=== PATIENT | male | born 1975 | race Caucasian/White ===

== ENCOUNTER 2025-03-23 13:51 | Outpatient (CLI) | payer OTHER, SELFPAY | END 2025-03-23 13:52 | disposition home or self-care (01) | LOC: WOUND 13:53 | PROVIDERS: Referring Provider Orthopaedic Surgery Foot and Ankle Surgery; Visit Provider Nurse Practitioner Family | DX: E11.621 Type 2 diabetes mellitus with foot ulcer (principal); L89.613 Pressure ulcer of right heel, stage 3; Z79.84 Long term (current) use of oral hypoglycemic drugs | CPT/HCPCS: 97597; G0463 ==

== ENCOUNTER 2025-03-30 12:00 | Outpatient (CLI) | payer OTHER, SELFPAY | END 2025-03-30 12:01 | disposition home or self-care (01) | LOC: WOUND 04-03 14:48 | PROVIDERS: Visit Provider Nurse Practitioner Family | DX: E11.628 Type 2 diabetes mellitus with other skin complications (principal); L89.613 Pressure ulcer of right heel, stage 3; Z79.84 Long term (current) use of oral hypoglycemic drugs | CPT/HCPCS: 11042 ==

== ENCOUNTER 2025-04-06 08:44 | Outpatient (CLI) | payer OTHER, SELFPAY | END 2025-04-06 08:45 | disposition home or self-care (01) | LOC: WOUND 08:44 | PROVIDERS: Visit Provider Nurse Practitioner Family | DX: E11.621 Type 2 diabetes mellitus with foot ulcer (principal); L89.613 Pressure ulcer of right heel, stage 3; L89.512 Pressure ulcer of right ankle, stage 2; Z79.84 Long term (current) use of oral hypoglycemic drugs | CPT/HCPCS: 11042; 97602 ==

== ENCOUNTER 2025-04-13 09:41 | Outpatient (CLI) | payer OTHER, SELFPAY | END 2025-04-13 09:42 | disposition home or self-care (01) | LOC: WOUND 09:41 | PROVIDERS: Visit Provider Nurse Practitioner Family | DX: L89.613 Pressure ulcer of right heel, stage 3 (principal); E11.9 Type 2 diabetes mellitus without complications; Z79.84 Long term (current) use of oral hypoglycemic drugs | CPT/HCPCS: 11042 ==

== ENCOUNTER 2025-04-20 08:44 | Outpatient (CLI) | payer OTHER, SELFPAY | END 2025-04-20 08:45 | disposition home or self-care (01) | LOC: WOUND 08:44 | PROVIDERS: Visit Provider Nurse Practitioner Family | DX: E11.621 Type 2 diabetes mellitus with foot ulcer (principal); L97.412 Non-pressure chronic ulcer of right heel and midfoot with fat layer exposed; Z79.84 Long term (current) use of oral hypoglycemic drugs | CPT/HCPCS: 11042 ==

== ENCOUNTER 2025-04-27 08:41 | Outpatient (CLI) | payer OTHER, SELFPAY | END 2025-04-27 08:42 | disposition home or self-care (01) | LOC: WOUND 08:41 | PROVIDERS: Visit Provider Nurse Practitioner Family | DX: E11.621 Type 2 diabetes mellitus with foot ulcer (principal); L97.412 Non-pressure chronic ulcer of right heel and midfoot with fat layer exposed; Z79.84 Long term (current) use of oral hypoglycemic drugs | CPT/HCPCS: 11042 ==

== ENCOUNTER 2025-05-04 08:48 | Outpatient (CLI) | payer OTHER, SELFPAY | END 2025-05-04 08:49 | disposition home or self-care (01) | LOC: WOUND 08:48 | PROVIDERS: Visit Provider Nurse Practitioner Family | DX: E11.621 Type 2 diabetes mellitus with foot ulcer (principal); L97.412 Non-pressure chronic ulcer of right heel and midfoot with fat layer exposed; E11.622 Type 2 diabetes mellitus with other skin ulcer; L97.312 Non-pressure chronic ulcer of right ankle with fat layer exposed; Z79.84 Long term (current) use of oral hypoglycemic drugs | CPT/HCPCS: 11042; 97597 ==

== ENCOUNTER 2025-05-11 08:49 | Outpatient (CLI) | payer OTHER, SELFPAY | END 2025-05-11 08:50 | disposition home or self-care (01) | PROVIDERS: Visit Provider Nurse Practitioner Family | DX: E11.621 Type 2 diabetes mellitus with foot ulcer (principal); L97.412 Non-pressure chronic ulcer of right heel and midfoot with fat layer exposed; E11.622 Type 2 diabetes mellitus with other skin ulcer; L97.312 Non-pressure chronic ulcer of right ankle with fat layer exposed; Z79.84 Long term (current) use of oral hypoglycemic drugs | CPT/HCPCS: 15275; 97597; Q4133 ==

== ENCOUNTER 2025-05-18 08:51 | Outpatient (CLI) | payer OTHER, SELFPAY | END 2025-05-18 08:52 | disposition home or self-care (01) | LOC: WOUND 08:51 | PROVIDERS: Visit Provider Nurse Practitioner Family | DX: E11.622 Type 2 diabetes mellitus with other skin ulcer (principal); L97.312 Non-pressure chronic ulcer of right ankle with fat layer exposed; E11.621 Type 2 diabetes mellitus with foot ulcer; L97.412 Non-pressure chronic ulcer of right heel and midfoot with fat layer exposed; Z79.84 Long term (current) use of oral hypoglycemic drugs | CPT/HCPCS: 29445; 97597 ==

== ENCOUNTER 2025-05-21 09:27 | Outpatient (CLI) | payer OTHER, SELFPAY | END 2025-05-21 09:28 | disposition home or self-care (01) | LOC: WOUND 09:39 | PROVIDERS: Visit Provider Family Medicine | DX: E11.621 Type 2 diabetes mellitus with foot ulcer (principal); L97.412 Non-pressure chronic ulcer of right heel and midfoot with fat layer exposed; L97.312 Non-pressure chronic ulcer of right ankle with fat layer exposed; Z79.84 Long term (current) use of oral hypoglycemic drugs; E11.622 Type 2 diabetes mellitus with other skin ulcer | CPT/HCPCS: 29445 ==

== ENCOUNTER 2025-05-25 08:48 | Outpatient (CLI) | payer OTHER, SELFPAY | END 2025-05-25 08:49 | disposition home or self-care (01) | LOC: WOUND 08:49 | PROVIDERS: Visit Provider Nurse Practitioner Family | DX: E11.621 Type 2 diabetes mellitus with foot ulcer (principal); L97.412 Non-pressure chronic ulcer of right heel and midfoot with fat layer exposed; E11.622 Type 2 diabetes mellitus with other skin ulcer; L97.312 Non-pressure chronic ulcer of right ankle with fat layer exposed; Z79.84 Long term (current) use of oral hypoglycemic drugs | CPT/HCPCS: 15275; 97597; Q4133 ==

== ENCOUNTER 2025-06-01 08:45 | Outpatient (CLI) | payer OTHER, SELFPAY | END 2025-06-01 08:46 | disposition home or self-care (01) | LOC: WOUND 08:45 | PROVIDERS: Visit Provider Nurse Practitioner Family | DX: E11.621 Type 2 diabetes mellitus with foot ulcer (principal); L97.412 Non-pressure chronic ulcer of right heel and midfoot with fat layer exposed; E11.622 Type 2 diabetes mellitus with other skin ulcer; L97.312 Non-pressure chronic ulcer of right ankle with fat layer exposed; Z79.84 Long term (current) use of oral hypoglycemic drugs | CPT/HCPCS: 11042; 29445 ==

== ENCOUNTER 2025-06-08 08:45 | Outpatient (CLI) | payer OTHER, SELFPAY | END 2025-06-08 08:46 | disposition home or self-care (01) | LOC: WOUND 08:46 | PROVIDERS: Visit Provider Family Medicine | DX: E11.621 Type 2 diabetes mellitus with foot ulcer (principal); L97.412 Non-pressure chronic ulcer of right heel and midfoot with fat layer exposed; E11.622 Type 2 diabetes mellitus with other skin ulcer; L97.312 Non-pressure chronic ulcer of right ankle with fat layer exposed; S81.812A Laceration without foreign body, left lower leg, initial encounter; Z79.84 Long term (current) use of oral hypoglycemic drugs | CPT/HCPCS: 11042; 97597 ==

== ENCOUNTER 2025-06-15 08:48 | Outpatient (CLI) | payer OTHER, SELFPAY | END 2025-06-15 08:49 | disposition home or self-care (01) | LOC: WOUND 08:48 | PROVIDERS: Visit Provider Nurse Practitioner Family | DX: E11.621 Type 2 diabetes mellitus with foot ulcer (principal); L97.412 Non-pressure chronic ulcer of right heel and midfoot with fat layer exposed; E11.622 Type 2 diabetes mellitus with other skin ulcer; L97.312 Non-pressure chronic ulcer of right ankle with fat layer exposed; S81.812A Laceration without foreign body, left lower leg, initial encounter; Z79.84 Long term (current) use of oral hypoglycemic drugs | CPT/HCPCS: 11042; 15275; Q4133 ==

== ENCOUNTER 2025-06-22 08:47 | Outpatient (CLI) | payer OTHER, SELFPAY | END 2025-06-22 08:48 | disposition home or self-care (01) | LOC: WOUND 08:47 | PROVIDERS: Visit Provider Nurse Practitioner Family | DX: E11.622 Type 2 diabetes mellitus with other skin ulcer (principal); L97.312 Non-pressure chronic ulcer of right ankle with fat layer exposed; S81.812A Laceration without foreign body, left lower leg, initial encounter; Z79.84 Long term (current) use of oral hypoglycemic drugs | CPT/HCPCS: 11042 ==

== ENCOUNTER 2025-06-29 08:44 | Outpatient (CLI) | payer OTHER, SELFPAY | END 2025-06-29 08:45 | disposition home or self-care (01) | LOC: WOUND 08:44 | PROVIDERS: Visit Provider Nurse Practitioner Family | DX: E11.622 Type 2 diabetes mellitus with other skin ulcer (principal); L97.312 Non-pressure chronic ulcer of right ankle with fat layer exposed; L97.412 Non-pressure chronic ulcer of right heel and midfoot with fat layer exposed; S81.812A Laceration without foreign body, left lower leg, initial encounter; Z79.84 Long term (current) use of oral hypoglycemic drugs | CPT/HCPCS: 11042; 97597 ==

== ENCOUNTER 2025-06-29 09:40 | Outpatient (CLI) | payer OTHER, SELFPAY ==
--- NOTE | 2025-06-29 09:45 | CRLHL7_ITS ---
For Patients: As a result of the Century Cures Act, medical imaging exams and procedure reports are released immediately into your electronic medical record. You may view this report before your referring provider. If you have questions, please contact your health care provider. Indication: NON HEALING PRESSURE ULCER ON RT HEEL Technique: Three views of the right ankle Comparison: None Findings/Impression: No acute fracture or malalignment. No ankle effusion. 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 No convincing radiographic evidence of osteomyelitis. No suspicious osseous lesions. Small plantar aspect calcaneal enthesophyte. Soft tissue edema along the posterior aspect of the calcaneus with small soft tissue ulceration. Vascular calcifications. Dictated by Lamont Hampton MD @ 06/29/2025 10:20:37 AM (Electronically Signed)
== END 2025-06-29 09:41 | disposition home or self-care (01) ==
LOC: RAD 09:41
PROVIDERS: Visit Provider Nurse Practitioner Family
DX: L97.412 Non-pressure chronic ulcer of right heel and midfoot with fat layer exposed (principal)
CPT/HCPCS: 73610

== ENCOUNTER 2025-07-06 09:00 | Outpatient (CLI) | payer OTHER, SELFPAY | END 2025-07-06 09:01 | disposition home or self-care (01) | LOC: WOUND 09:00 | PROVIDERS: Visit Provider Nurse Practitioner Family | DX: E11.621 Type 2 diabetes mellitus with foot ulcer (principal); L97.412 Non-pressure chronic ulcer of right heel and midfoot with fat layer exposed; Z79.84 Long term (current) use of oral hypoglycemic drugs | CPT/HCPCS: 11042 ==

== ENCOUNTER 2025-07-18 14:45 | Outpatient (CLI) | payer OTHER, SELFPAY ==
--- NOTE | 2025-07-18 15:30 | CRLHL7_ITS ---
For Patients: As a result of the 21st Century Cures Act, medical imaging exams and procedure reports are released immediately into your electronic medical record. You may view this report before your referring provider. If you have questions, please contact your health care provider. EXAM: MRI OF THE RIGHT ANKLE, WITHOUT AND WITH IV CONTRAST CLINICAL INDICATION: Ankle pain. COMPARISON PLAIN FILMS: None. COMPARISON CROSS-SECTIONAL IMAGING STUDIES: None. TECHNICAL: Axial, sagittal and coronal T1, PD, PD FS and STIR images precontrast. Postcontrast T1 weighted imaging with fat saturation. Contrast: Dotarem, 20 mL IV. FINDINGS: OSSEOUS STRUCTURES AND SOFT TISSUES: Ulceration in the posterior aspect of the heel. There is a 0.5 cm tract that extends the full width of the subcutaneous tissues just distal to the Achilles tendon insertion which abuts the cortical margin of the posterior process of the calcaneus. There is mild cortical irregularity in the posterior process of the calcaneus with a small adjacent area of fatty marrow replacement on T1 weighted imaging, mild intramedullary edema and enhancement. Findings consistent with a small focus of osteomyelitis. No subcutaneous abscess. Intraosseous ganglion in the body of the calcaneus. No fracture or contusion. No evidence for avascular necrosis. JOINT SPACES: The ankle joint space is maintained without joint effusion. No talar dome osteochondral lesion. No joint bodies are identified. The subtalar joints are maintained. The talonavicular and calcaneocuboid joint spaces are maintained. Joint spaces within the visualized midfoot and at the midfoot forefoot junction are maintained. LIGAMENTS: Syndesmotic Ligaments: The anterior and posterior syndesmotic ligaments are intact. Lateral Ligaments: Thinning of the anterior talofibular ligament consistent with a chronic partial-thickness tear. The calcaneofibular ligament is intact. The posterior talofibular ligament is intact. Medial Ligaments: The superficial and deep components of the deltoid ligament complex are maintained. Spring Ligaments: The calcaneonavicular spring ligament complex is intact. TENDONS: Achilles and flexor Tendons: Flexor hallucis longus tendon transfer with anchor in the posterior calcaneal tuberosity. Heterogeneous thickening and increased signal in the flexor hallucis longus and Achilles tendons with blooming artifact consistent with moderate tendinopathy and postoperative changes. No high-grade tendon tear. Extensor Tendons: The anterior extensor tendons are intact. Peroneal Tendons: The peroneus longus and brevis tendons are intact. No subluxation of the peroneal tendons. TARSAL TUNNEL: The soft tissues of the tarsal tunnel are normal without mass or fluid collection. No abnormality along the course of the medial or lateral plantar nerves. SINUS TARSI: The structures of the sinus tarsi appear normal. No disruption of the interosseous ligaments or significant effacement of fat. PLANTAR SOFT TISSUES: The plantar fascia is intact. No atrophy or edema of the abductor digiti minimi muscle belly. IMPRESSION: 1. Ulceration on the posterior aspect of the heel with tract extends to the posterior process of the calcaneus. Findings worrisome for a small area of osteomyelitis in the calcaneus adjacent to the deep tract. 2. Tendinopathy and postoperative changes in the Achilles and flexor hallucis longus tendons. 3. Chronic tear of the anterior talofibular ligament. 4. Intraosseous ganglion in the body of the calcaneus. Dictated by Doc Gr MD @ 07/19/2025 9:14:26 AM (Electronically Signed)
== END 2025-07-18 14:46 | disposition home or self-care (01) ==
LOC: MRI 14:45
PROVIDERS: Visit Provider Nurse Practitioner Family
DX: M25.571 Pain in right ankle and joints of right foot (principal); E11.621 Type 2 diabetes mellitus with foot ulcer; L97.412 Non-pressure chronic ulcer of right heel and midfoot with fat layer exposed; S93.491A Sprain of other ligament of right ankle, initial encounter
CPT/HCPCS: 73723; A9575

== ENCOUNTER 2025-07-20 08:54 | Outpatient (CLI) | payer OTHER, SELFPAY | END 2025-07-20 08:55 | disposition home or self-care (01) | LOC: WOUND 08:54 | PROVIDERS: Visit Provider Nurse Practitioner Family | DX: E11.621 Type 2 diabetes mellitus with foot ulcer (principal); L97.412 Non-pressure chronic ulcer of right heel and midfoot with fat layer exposed; Z79.84 Long term (current) use of oral hypoglycemic drugs | CPT/HCPCS: G0463 ==

== ENCOUNTER 2025-07-27 08:41 | Outpatient (CLI) | payer OTHER, SELFPAY | END 2025-07-27 08:42 | disposition home or self-care (01) | LOC: WOUND 08:41 | PROVIDERS: Visit Provider Nurse Practitioner Family | DX: E11.621 Type 2 diabetes mellitus with foot ulcer (principal); L97.412 Non-pressure chronic ulcer of right heel and midfoot with fat layer exposed; Z79.84 Long term (current) use of oral hypoglycemic drugs | CPT/HCPCS: 11042 ==

== ENCOUNTER 2025-08-03 08:46 | Outpatient (CLI) | payer OTHER, SELFPAY | END 2025-08-03 08:47 | disposition home or self-care (01) | LOC: WOUND 08:46 | PROVIDERS: Visit Provider Physician Assistant | DX: E11.621 Type 2 diabetes mellitus with foot ulcer (principal); L97.412 Non-pressure chronic ulcer of right heel and midfoot with fat layer exposed; Z79.84 Long term (current) use of oral hypoglycemic drugs | CPT/HCPCS: 97597 ==

== ENCOUNTER 2025-08-10 08:40 | Outpatient (CLI) | payer OTHER, SELFPAY | END 2025-08-10 08:41 | disposition home or self-care (01) | LOC: WOUND 08:40 | PROVIDERS: Visit Provider Nurse Practitioner Family | DX: E11.621 Type 2 diabetes mellitus with foot ulcer (principal); L97.411 Non-pressure chronic ulcer of right heel and midfoot limited to breakdown of skin; Z79.84 Long term (current) use of oral hypoglycemic drugs | CPT/HCPCS: G0463 ==